=== PATIENT | female | born 1990 | race Caucasian/White ===

== ENCOUNTER 2023-10-23 08:31 | Inpatient (IN) | payer OTHER ==
[2023-10-23] VITALS (31 sets, daily range): BP systolic 97–155; BP diastolic 59–84; PULSE 64–106; TEMP 98.1–98.3
[~2023-10-23] VITALS: Ht 180.3 cm; Wt 84.1 kg
[~2023-10-23 08:31] MED LIST: PHENERGAN 25 TA25 MG PO
--- NOTE | 2023-10-23 09:20 | NUR ---
Presents to L&D, ambulatory, for scheduled induction of labor. Accompanied by spouse, Shar.
[2023-10-23 10:06] LABS: HEMATOCRIT 38.2 % (37.0-47.0); HEMOGLOBIN 12.9 g/dl (12.5-16.0); MEAN CELL VOLUME 96 fl (80.0-100.0); MEAN CORPUSCULAR HEMOGLOBIN 33 pg (27-31); MEAN CORPUSCULAR HGB CONC 34 g/dl (33.0-37.0); MEAN PLATELET VOLUME 10.4 fl (7.4-10.4); PLATELET COUNT 182 K/mm3 (130-400); RED BLOOD COUNT 3.97 M/mm3 (4.10-5.30); REDCELL DISTRIBUTION WIDTH-CV 13.3 % (11.5-14.5)
[2023-10-23] MEDS ORDERED: ZOLOFT 100MG100 MG PO (10:32)
[2023-10-23] MEDS ORDERED: LAMICTAL 100MG100 MG PO (10:34)
[2023-10-23] MEDS ORDERED: MINIPRESS2 MG PO (10:35)
[2023-10-23] MEDS ORDERED: SLOW FE137 M1 PO (10:36)
[2023-10-23] MEDS ORDERED: BENADRYL25 M2 PO (10:36)
[2023-10-23] MEDS ORDERED: PRENATAL TABLET PO (10:36)
[2023-10-23] MEDS ORDERED: SUDAFED 12 HOU120 MG PO (10:37)
[2023-10-23] MEDS ORDERED: TYLENOL 500MG500 MG PO (10:38)
--- NOTE | 2023-10-23 10:50 | NUR ---
Requests epidural prior to AROM. LR bolus begun. Sabiha Freed CRNA, notified.
[2023-10-23 10:52] LABS: LYMPHOCYTE 17 % (20.0-51.0); NEUTROPHILS 80 % (42.0-75.2); PLATELET ESTIMATE NORMAL (NORMAL)
--- NOTE | 2023-10-23 12:40 | NUR ---
Following epidural placement by DIEGO Oh, repositioned supine with wedge to right.
--- NOTE | 2023-10-23 12:45 | NUR ---
Patient requests to take a nap. Encouraged to do so at this time.
[2023-10-23 13:06] LABS: TRICYCLIC ANTIDEPRESS URINE NEGATIVE (NEGATIVE)
--- NOTE | 2023-10-23 13:40 | NUR ---
Repositioned from supine with wedge to right side to left lateral with peanut ball.
--- NOTE | 2023-10-23 14:10 | NUR ---
here for AROM, clear fluid noted. Palpates contractions, firm per statement.
--- NOTE | 2023-10-23 14:48 | NUR ---
Rate of epidural pump decreased to 8 mL/hr at this time, as noted, patient unable to control any movement, very dense block. This done under instruction from DIEGO Oh, over phone.
--- NOTE | 2023-10-23 15:23 | NUR ---
Repositioned to left lateral with right leg up in stirrup. Note patient c/o nausea at this time. See e-mar for Zofran administration.
--- NOTE | 2023-10-23 15:45 | NUR ---
Rate of pitocin cut in half, as noted, uterine tachysystole pattern. 200mL LR bolus administered. Rate of pitocin cut to 10mU/min at this time.
--- NOTE | 2023-10-23 16:19 | NUR ---
Epidural pump stopped at this time, as noted, patient epidural block remains very dense, no control of body, feeling no rectal pressure at ant lip/+1 station.
--- NOTE | 2023-10-23 16:42 | NUR ---
Epidural pump restarted for patient c/o pain on right side.
--- NOTE | 2023-10-23 16:45 | NUR ---
C/+2. notified to come for delivery.
--- NOTE | 2023-10-23 16:56 | NUR ---
here for delivery.
--- NOTE | 2023-10-23 17:00 | NUR ---
First push attempt with instruction.
--- NOTE | 2023-10-23 17:02 | NUR ---
Spontaneous vaginal delivery of male infant by at this time.
--- NOTE | 2023-10-23 17:06 | NUR ---
Epidural pump off.
--- NOTE | 2023-10-23 17:07 | NUR ---
Spontaneous vaginal delivery of placenta by . Pit bolus begun immediately following @ 333mU/min. repairs 2nd degree laceration with 3-[address]1.
--- NOTE | 2023-10-23 22:00 | NUR ---
L leg continues "numb" can slightly move foot, but not bend knee. Has good control over R leg. L.Lourdes BOOKKEEPING CLERK just checked on pt , aware. Epidural catheter dc'd. IV to INT. Up to bathroom via '[employer]', unable to void at this time. Performs own pericare. Panties, pads, clean gown on. Transferred to room via '[employer]". Orieneted to room, plan of care. Pt instructed to call for staff assistance when needs to get out of bed. Verbalizes understanding.
--- NOTE | 2023-10-24 01:05 | NUR ---
Pt continues with discomfort. Crying while , stating it feels like contractions. It hurts when he's laying on my stomach." Asked if she would like to try to in football hold. Pt states "that's ok, I think he's done now. I didn't have very good luck with football hold with my other son." Informed pt that we can help her with positions and latching on. Oxycodone repeated.
[2023-10-24 03:00] VITALS: BP 116/73; PULSE 73; TEMP 98
[2023-10-24 07:30] VITALS: BP 140/76; PULSE 92; TEMP 98
[2023-10-24] MEDS ORDERED: IBU600 MG PO (09:46)
[2023-10-24 15:45] VITALS: BP 130/78; PULSE 89
--- NOTE | 2023-10-24 19:15 | NUR ---
1915- NURSE TO BEDSIDE. DISCHARGE INSTRUCTIONS GIVEN AND QUESTIONS ANSWERED. PT VERBALIZES UNDERSTANDING AND SIGNS PAPERWORK FOR HERSELF AND BABY. PT WILL FEED BABY PRIOR TO DISCHARGE. 1949- PT DISMISSED TO HOME ACCOMPANIED BY SPOUSE. BABY AND BELONGINGS WITH PT. PT ESCORTED BY THIS RN TO EXIT.
== END 2023-10-24 19:50 | disposition home or self-care (01) | DRG 807 ==
LOC: OB 08:31 → LDR 09:03 → OB 10:23
PROVIDERS: ADMIT Obstetrics & Gynecology
PROC: 10E0XZZ Delivery of Products of Conception, External Approach (ICD-10-PCS; principal; 2023-10-23)
PROC: 0KQM0ZZ Repair Perineum Muscle, Open Approach (ICD-10-PCS; 2023-10-23)
PROC: 3E033VJ Introduction of Other Hormone into Peripheral Vein, Percutaneous Approach (ICD-10-PCS; 2023-10-23)
PROC: 10907ZC Drainage of Amniotic Fluid, Therapeutic from Products of Conception, Via Natural or Artificial Opening (ICD-10-PCS; 2023-10-23)
DX: O48.0 Post-term pregnancy (principal); Z37.0 Single live birth; O99.344 Other mental disorders complicating childbirth; F31.9 Bipolar disorder, unspecified; O99.02 Anemia complicating childbirth; D64.9 Anemia, unspecified; O99.824 Streptococcus B carrier state complicating childbirth; F41.9 Anxiety disorder, unspecified; F51.5 Nightmare disorder; F41.0 Panic disorder [episodic paroxysmal anxiety]; O70.1 Second degree perineal laceration during delivery; Z23 Encounter for immunization; Z3A.40 40 weeks gestation of pregnancy
CPT/HCPCS: J2405; J2540; J2590; J2795; J7120

== ENCOUNTER → 2023-10-27 | Outpatient (CLI) | payer OTHER ==
[~2023-10-27] MED LIST changes: +BENADRYL25 M2 PO; +IBU600 MG PO; +LAMICTAL 100MG100 MG PO; +MINIPRESS2 MG PO; +PRENATAL TABLET PO; +SLOW FE137 M1 PO; +SUDAFED 12 HOU120 MG PO; +TYLENOL 500MG500 MG PO; +ZOLOFT 100MG100 MG PO
--- NOTE | 2023-10-27 15:09 | NUR ---
Pt, Irene Campo, presents to walk-in clinic with 4 day old baby boy, Andrae Campo, for a evaluation. Pt states her nipples are very sore, and bleeding. Also she does not thing Andrae is latching properly and getting enough milk. Andrae was born on [birth year] and weighed 8# 9.2oz (3890 gms). Pt reports she started pumping and bottle feeding for about the last 24 hours because of the pain. He seemed statisfied after feedings and was making adequate voids and stools. But now he his taking 2oz EBM per feedings, and she is able to pump 3.5oz per pumping session. Today Andrae weighs 8# 0oz (3630 gms) for a 6% weight loss. LC notes wounds bilaterally, consistent with compression strips and a shallow latch. Pt states there is bleeding from these wounds. LC advises pt on compression of areola under the top and bottom lip for a deeper latch. Lips are flanged out, and almost the full areola is in baby's mouth. Pt states this feels more comfortable. After the right side, Andrae had a gain of 6 gms (0.2oz). Pt able to latch Andrae to the second breast with less assistance. After nursing Andrae had a total weight gain of 1.7oz (46 gms). He has a small spit up with a little blood tinge to it. LC discusses this is blood from the nipple. RX for Gonzalez's Nipple Cream requested from Dr. Muller. LC does suck evaluation and notes Andrae has a loose screw machine repairer with the tongue a slight indentation to the tip of his tongue and a high anterior arch to his palate. PT states he has a hard time keeping a pacifier in his mouth and sometimes she hears clicking with nursing. POC: Continue to improve latch depth with techniques learned here. Consider use of Gonzalez's Nipple cream, monitor for weight gain and nipple soreness improving. May consider alternating with pump/bottle while nipples heal. F/U: Andrae has an appointment tomorrow with Dr. Kline, and as desired with [facility] at walk-in clinic next week. Questions invited and answered.
== END ==
LOC: LAC 12:47
DX: Z39.1 Encounter for care and examination of lactating mother (principal); Z71.89 Other specified counseling